=== PATIENT | male | born 1985 | race Caucasian/White ===

== ENCOUNTER 2021-02-04 06:39 | Emergency (ER) | payer BC ==
[2021-02-04 08:22] LABS: HEMOGLOBIN 15.2 gm/dl (14.0-17.5); RED BLOOD COUNT 5.26 M/UL (4.20-5.50); WHITE BLOOD COUNT 7.6 K/UL (4.5-11.0)
[2021-02-04 09:07] LABS: BUN/CREATININE RATIO 10 (0-10)
== END 2021-02-04 10:05 | disposition home or self-care (01) ==
LOC: ER1 06:39
PROVIDERS: Emergency Medicine
DX: R07.89 Other chest pain (principal); R25.3 Fasciculation; T40.3X5A Adverse effect of methadone, initial encounter; F17.210 Nicotine dependence, cigarettes, uncomplicated
CPT/HCPCS: 36415; 80053; 82550; 82553; 83735; 83874; 84100; 84484; 85025; 93005; 96374; 99285; J1200

== ENCOUNTER 2021-03-27 09:22 | Emergency (ER) | payer BC ==
[2021-03-27 10:16] LABS: HEMOGLOBIN 14.1 gm/dl (14.0-17.5); RED BLOOD COUNT 4.79 M/UL (4.20-5.50); WHITE BLOOD COUNT 9.7 K/UL (4.5-11.0)
[2021-03-27 11:01] LABS: BUN/CREATININE RATIO 8 (0-10)
== END 2021-03-27 14:20 | disposition home or self-care (01) ==
LOC: ER1 09:22
PROVIDERS: Nurse Practitioner
DX: R07.9 Chest pain, unspecified (principal); R42 Dizziness and giddiness; F17.210 Nicotine dependence, cigarettes, uncomplicated; Z79.899 Other long term (current) drug therapy
CPT/HCPCS: 71045; 80053; 82550; 82553; 83735; 83874; 84484; 85025; 93005; 99285